=== PATIENT | male | born 1935 | race Caucasian/White ===

== ENCOUNTER → 2018-08-22 11:59 | Outpatient (CLI) | payer MEDICARE, OTHER, SELFPAY ==
--- NOTE | 2018-08-22 | DI.MRI.S_ITS ---
PROCEDURE: MR LUMBAR SPINE WO CON INDICATIONS: SCIATICA TECHNIQUE: Noncontrast sagittal T1 spin echo and T2 fast echo, sagittal STIR, axial T1 and T2 fast spin echo through the lumbar spine. In cases with scoliosis, additional coronal T2 fast spin echo may be performed. COMPARISON: None. FINDINGS: Image quality: Diagnostic, with note made of motion artifact. Alignment and Curvature: There is normal bony alignment. Bone Marrow: Marrow is of normal overall signal. No acute vertebral body compression fractures. Spinal Cord: Conus medullaris terminates at the L1 level. Visualized cord demonstrates normal signal and size. Paraspinous Soft Tissues: No paravertebral masses. T12-L1: Normal appearance. L1-L2: The disc height is well-preserved. Loss of disc signal is seen at this level. Mild to moderate disc bulge is seen. Mild to moderate facet hypertrophy is seen. No definite neural foraminal narrowing is seen. Mild to moderate central canal narrowing is seen, as on series 5 image 10. L2-L3: Mild loss of disc height is seen. Loss of disc signal is seen. Moderate disc bulge is seen, which is eccentric to the left. Mild to moderate facet hypertrophy is seen. There is moderate right-sided and mild to moderate left-sided neural foraminal narrowing seen. Moderate central canal narrowing is seen. L3-L4: Mild loss of disc height is seen. Loss of disc signal is seen. Moderate generalized disc bulge is seen. Moderate facet hypertrophy is seen, with associated moderate hypertrophy of the ligamentum flavum. There is at least moderate bilateral neural foraminal narrowing seen, left worse than right. Moderate central canal narrowing is seen. L4-L5: Mild loss of disc height is seen. Loss of disc signal is seen. Moderate to prominent disc bulge is seen, which is eccentric to the left. Moderate facet hypertrophy is seen, with associated moderate hypertrophy of the ligamentum flavum. There is at least moderate right-sided neural foraminal narrowing and there is moderate to severe left-sided neural foraminal narrowing seen. There is a degree of impingement seen upon the exiting nerve roots. Severe central canal narrowing is seen at this level. L5-S1: The disc height is well-preserved. Loss of disc signal is seen at this level. Moderate disc bulge is seen, which is eccentric to the left. Moderate facet hypertrophy is seen, left worse than right. There is moderate left-sided and moderate to severe right-sided neural narrowing seen. A mild degree of impingement can be seen upon the exiting right L5 nerve root. Mild central canal narrowing is seen. 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 Dictated by: Compa Rae M.D. on 08/22/2018 at 12:16 Approved by: Compa Rae M.D. on 08/22/2018 at 12:20
== END ==
PROVIDERS: PCP Family Medicine; Visit Provider Family Medicine
DX: M54.30 Sciatica, unspecified side (principal); M53.86 Other specified dorsopathies, lumbar region
CPT/HCPCS: 72148

== ENCOUNTER → 2021-09-22 10:30 | Outpatient (CLI) | payer MEDICARE, OTHER, SELFPAY ==
--- NOTE | 2021-09-22 | DI.US.S_ITS ---
PROCEDURE: US CAROTID DOPPLER BI INDICATIONS: STENOSIS TECHNIQUE: Color and pulse Doppler interrogation was performed of both carotid systems, with image documentation and velocity measurements. COMPARISON: None. FINDINGS: Stenosis calculations are based on SRU (Society of Radiologists in Ultrasound) criteria. Right side: Brachial blood pressure: 124/52 mm Hg. Common carotid artery peak systolic velocity: 61 cm/sec. Internal carotid artery peak systolic velocity: 46 cm/sec. Internal carotid artery end diastolic velocity: 80 cm/sec. External carotid artery peak systolic velocity: 56 cm/sec. ICA/CCA peak systolic ratio: 0.8 . Fernandes scale imaging description: Mild diffuse plaque Percent internal carotid artery stenosis: Less than 50% . Vertebral artery: Flow direction is antegrade. Left side: Brachial blood pressure: 107/52 mm Hg. Common carotid artery peak systolic velocity: 98 cm/sec. Internal carotid artery peak systolic velocity: 59 cm/sec. Internal carotid artery end diastolic velocity: 7 cm/sec. External carotid artery peak systolic velocity: 100 cm/sec. ICA/CCA peak systolic ratio: 0.6 . Fernandes scale imaging description: Moderate diffuse plaque Percent internal carotid artery stenosis: Less than 50% . Vertebral artery: Flow direction is antegrade. IMPRESSION: 1. Less than 50% bilateral internal carotid artery stenosis. 2. Antegrade vertebral artery flow bilaterally. Dictated by: Lew Barnes M.D. on 09/22/2021 at 15:22 Approved by: Lew Barnes M.D. on 09/22/2021 at 15:23
== END ==
PROVIDERS: PCP Internal Medicine; Referring Provider Physician Assistant; Visit Provider Physician Assistant
DX: I65.23 Occlusion and stenosis of bilateral carotid arteries (principal); R47.89 Other speech disturbances
CPT/HCPCS: 93880

== ENCOUNTER → 2021-11-16 09:32 | Outpatient (CLI) | payer MEDICARE, OTHER, SELFPAY ==
--- NOTE | 2021-11-16 | DI.MRI.S_ITS ---
PROCEDURE: MR HEAD/BRAIN WO/W CON INDICATIONS: Other amnesia TECHNIQUE: Noncontrast axial T1 spin echo, axial T2 fast spin echo, sagittal and axial FLAIR, coronal T2 fast spin echo, axial gradient echo, axial diffusion and ADC through the brain. After the administration of contrast, axial and coronal 3D VIBE or T1 spin echo with fat saturation through the brain. COMPARISON: None. FINDINGS: Image quality: Excellent. CSF Spaces: Basal cisterns are patent. No extra-axial fluid collections. Ventricles are normal in size and shape. Brain: Moderate cerebral volume loss without definite regional or lobar predilection. Advanced moderate to severe chronic microvascular ischemic changes. No mass effect or midline shift. No unexpected intracranial susceptibility or enhancement. No restricted diffusion. The major intracranial vascular flow-related signal voids are maintained. Skull and face: Calvarial marrow is normal in signal. Orbits appear normal. Sinuses: Sinuses and mastoids appear clear. IMPRESSION: No acute intracranial abnormality. Moderate global cerebral volume loss without regional or lobar predilection to suggest a specific neuro-degenerative disorder. Moderate to severe chronic microvascular ischemic changes. Dictated by: Ryan Velasco M.D. on 11/16/2021 at 9:38 Approved by: Ryan Velasco M.D. on 11/16/2021 at 9:42
== END ==
PROVIDERS: PCP Internal Medicine; Referring Provider Internal Medicine; Visit Provider Internal Medicine
DX: R41.3 Other amnesia (principal)
CPT/HCPCS: 70553; A9579

== ENCOUNTER 2022-09-19 03:14 | Emergency (ER) | payer MEDICARE, OTHER, SELFPAY ==
[2022-09-19 03:27] VITALS: BP 179/74; PULSE 65; RESP 18; TEMP 36.6; O2SAT 99; BMI 30.5
--- NOTE | 2022-09-19 03:32 | DI.RAD.S_ITS ---
PROCEDURE: XR CHEST 1V INDICATIONS: SOB TECHNIQUE: One view of the chest was acquired. COMPARISON: [facility], , XR CHEST 1 VIEW, 12/09/2021, 8:42. FINDINGS: Surgical changes and devices: Sternotomy. Lungs and pleura: Lungs are clear. No pleural effusions or pneumothorax. Mediastinum: Mediastinal contours appear normal. Heart size is normal. Bones and chest wall: No suspicious bony lesions. Overlying soft tissues appear unremarkable. IMPRESSION: No acute cardiopulmonary disease. No significant discrepancy with the grommet worker radiology preliminary report. Dictated by: Reese Gonsalez M.D. on 09/19/2022 at 8:28 Approved by: Reese Gonsalez M.D. on 09/19/2022 at 8:28
[2022-09-19 03:47] LABS: Add Manual Diff / Slide Review NO; Basophils Absolute Auto 100 /uL (0-100); Basophils Percent Auto 0.9 % (0-2); Eosinophils Absolute Auto 200 /uL (0-450); Hematocrit 38.8 % (41-53); Hemoglobin 12.7 g/dL (13.5-17.5); Lymphocytes Absolute Auto 1900 /uL (1100-4500); Lymphocytes Percent Auto 30.5 % (25-40); Mean Corpuscular HGB Conc 32.8 % (30-36); Mean Corpuscular Hemoglobin 30.1 PG (26-34); Mean Corpuscular Volume 91.9 fL (80-100); Monocytes Absolute Auto 700 /uL (0-900); Neutrophils Absolute Auto 3500 /uL (1500-7000); Neutrophils Percent Auto 54.6 % (50-75); Platelet Count 178 X10^3/uL (150-400); Red Blood Cell Count 4.22 X10^6/uL (4.5-5.9); Red Cell Distribution Width 16.8 % (11.6-14.8); White Blood Cell Count 6.4 X10^3/uL (4.5-11.0)
[2022-09-19 03:50] LABS: Creatine Kinase 465 U/L (55-170); Lipase 217 U/L (23-300); Magnesium 2.1 mg/dL (1.6-2.3)
[2022-09-19 03:51] LABS: Alanine Aminotransferase 37 IU/L (<50); Albumin 4.3 g/dL (3.5-5.0); Albumin Globulin Ratio 1.4 (1.0-2.8); Alkaline Phosphatase 72 U/L (38-126); Aspartate Aminotransferase 45 IU/L (17-59); BUN Creatinine Ratio 8.1 (6-22); Bilirubin Total 0.9 mg/dL (0.2-1.3); Blood Urea Nitrogen 12 mg/dL (9-20); Calcium 9.2 mg/dL (8.4-10.2); Carbon Dioxide 28 mmol/L (22-32); Chloride 106 mmol/L (98-107); Estimated Glomerular Filt Rate 46 mL/min (>60); Glucose 99 mg/dL (80-110); HEMOLYSIS < 15 (0-50); Potassium 3.6 mmol/L (3.4-5.1); Sodium 143 mmol/L (137-145); Total Protein 7.3 g/dL (6.3-8.2)
--- NOTE | 2022-09-19 03:58 | ED.GENADULT ---
HPI - General Adult General Chief complaint: Shortness of Breath/Dyspnea Stated complaint: sob Time Seen by Provider: 09/19/22 03:20 Source: patient Mode of arrival: Ambulatory Limitations: other (Dementia) History of Present Illness HPI narrative: Patient is an 86-year-old male. Here with his . Somewhat difficult to actually ascertain why he is here. Initial reports were that he was having some shortness of breath specifically with exertion and there were other times that he was stating that he was not having any shortness of breath but he was having chest pain. A 3rd time he stated that he was not having chest pain or shortness of breath but that he was having a lot of phlegm running down the back of his throat. He currently states he feels okay but apparently earlier this evening he was having problems breathing which is why he woke up his and asked her to bring him to the emergency department. He is no lower extremity swelling. He is unsure exactly what medications that he takes. He states that he takes ?8 medicines ?for his heart. Some of them he takes multiple times a day and some of them he takes once a day but he does not know the names. His is unsure of medicines that he takes as well. At the time of my initial evaluation he states that his biggest complaint was that he was having pain in his right hip where he recently received immunizations. Related Data Previous Rx's Medication Instructions Recorded furosemide 20 mg tablet (Lasix) 20 mg PO DAILY 3 days #3 tabs 09/19/22 Allergies Allergy/AdvReac Type Severity Reaction Status Date / Time No Known Drug Allergies Allergy Verified 09/19/22 03:27 Review of Systems Constitutional Constitutional: Reports system reviewed and no additional complaints, except as documented ENT Ears, Nose, Mouth, and Throat: Reports system reviewed and no additional complaints, except as documented Cardiovascular Cardiovascular: Reports system reviewed and no additional complaints, except as documented Respiratory Respiratory: Reports system reviewed and no additional complaints, except as documented Gastrointestinal Gastrointestinal: Reports system reviewed and no additional complaints, except as documented Integumentary/Breasts Skin/Breast: Reports system reviewed and no additional complaints, except as documented Patient History Medical History Dementia Social History Smoking Status: Never smoker Smoking Status: Never smoker Substance Use Type: does not use Exam Initial Vital Signs Initial Vital Signs: Vital Signs Temperature 97.9 F 09/19/22 03:27 Pulse Rate 65 09/19/22 03:27 Respiratory Rate 18 09/19/22 03:27 Blood Pressure 179/74 H 09/19/22 03:27 Pulse Oximetry 99 09/19/22 03:27 Oxygen Delivery Method 09/19/22 03:27 Const General: comfortable and No ill appearing [facility] Head: normal to inspection and normocephalic Resp Effort & Inspection: normal respiratory effort Auscultation: clear to auscultation bilaterally Cardio Rate: regular rate Rhythm: regular rhythm GI Inspection: normal to inspection Skin General: no rashes or lesions noted Neuro General: patient alert, patient awake, moves all extremities and patient confused Extrem General: edema (1+ pitting edema bilateral lower extremities) Course Orders Ordered: ED Orders 09/19/22 03:25 Complete Blood Count AUTO DIFF Stat Comprehensive Metabolic Panel Stat Lipase Stat Magnesium Stat NT-proBNP (BNP-Adult 18+) Stat Troponin & CK Cardiac Panel Stat 09/19/22 03:27 EKG-12 Lead Stat 09/19/22 03:32 XR chest 1V Stat Vital Signs Vital signs: Vital Signs - 8 hr 09/19/22 03:27 Temperature 97.9 F Pulse Rate 65 Respiratory Rate 18 Blood Pressure 179/74 H Pulse Oximetry 99 Oxygen Delivery Method Room Air Medical Decision Making Lab Data Lab results reviewed: Yes I reviewed the patient's lab results. Result diagrams: 09/19/22 03:25 09/19/22 03:25 Labs: Lab Results 09/19/22 09/19/22 09/19/22 Range/Units 03:25 03:25 03:25 WBC 6.4 (4.5-11.0) X10^3/uL RBC 4.22 L (4.5-5.9) X10^6/uL Hgb 12.7 L (13.5-17.5) g/dL Hct 38.8 L (41-53) % MCV 91.9 (80-100) fL MCH 30.1 (26-34) PG MCHC 32.8 (30-36) % RDW 16.8 H (11.6-14.8) % Plt Count 178 (150-400) X10^3/uL Neut % (Auto) 54.6 (50-75) % Lymph % (Auto) 30.5 (25-40) % [place] % (Auto) 11.0 (3-14) % Eos % (Auto) 3.0 (2-4) % Baso % (Auto) 0.9 (0-2) % Neut # (Auto) 3500 (7165-5836) /uL Lymph # (Auto) 1900 (3158-6863) /uL [place] # (Auto) 700 (0-900) /uL Eos # (Auto) 200 (0-450) /uL Baso # (Auto) 100 (0-100) /uL Sodium 143 (137-145) mmol/L Potassium 3.6 (3.4-5.1) mmol/L Chloride 106 (98-107) mmol/L Carbon Dioxide 28 (22-32) mmol/L BUN 12 (9-20) mg/dL Creatinine 1.49 H (0.66-1.25) mg/dL Estimated GFR 46 L (>60) mL/min BUN/Creatinine Ratio 8.1 (6-22) Glucose 99 (80-110) mg/dL Calcium 9.2 (8.4-10.2) mg/dL Magnesium 2.1 (1.6-2.3) mg/dL Total Bilirubin 0.9 (0.2-1.3) mg/dL AST 45 (17-59) IU/L ALT 37 (<50) IU/L Alkaline Phosphatase 72 (38-126) U/L Total Creatine Kinase 465 H (55-170) U/L CK-MB (CK-2) 3.46 H (<2.37) ng/mL CK-MB (CK-2) Rel Index 0.7 L (1.5-5.0) % Troponin I 0.018 (0.01-0.034) ng/mL NT-Pro-B Natriuret Pep 1730 H (<450) pg/mL Total Protein 7.3 (6.3-8.2) g/dL Albumin 4.3 (3.5-5.0) g/dL Globulin 3.0 (1.7-4.1) g/dL Albumin/Globulin Ratio 1.4 (1.0-2.8) Lipase 217 (23-300) U/L Imaging Data Chest x-ray: Radiologist's Impression: No acute cardiopulmonary abnormality is identified ECG Data Attestation: I personally reviewed and interpreted this ECG as follows: Interpretation: Sinus rhythm Ventricular rate is 62 Artifact noted in baseline Left axis deviation Left bundle branch block MDM Narrative Medical decision making narrative: Patient denies chest pain denies shortness of breath and time of my exam. His troponin is negative. Chest x-ray is relatively unremarkable. He does have pitting edema in both of his lower extremities. His BNP is somewhat elevated. No prior to compare to. From what I can get with talking with him and his he has had issues with shortness of breath specifically with exertion. Plan will be is to put him on Lasix for the next couple days. He states he is not on any medications that cause him to urinate. He states he is not taking Lasix/furosemide. His also confirmed that she does not think that he has to on this medication. I figure that even if he was on this medication increasing it for the next couple days could potentially help his shortness of breath. I have low suspicion for pneumonia. He is asymptomatic. Does not have findings consistent with an upper respiratory infection. This medicine was electronically transmitted to the pharmacy of his choice. He was given written return precautions. The patient and his expressed agreement plan. Discharge Plan Departure Patient Disposition: Home Clinical Impression: Shortness of Breath Instructions: DI for Shortness of Breath Activity Restrictions/Additional Instructions: Continue to take all of your medications as directed for the next couple days we are going to start you on a medicine called Lasix/furosemide. It was sent to the [employer] [facility] and you can pick it up later today and start taking it today. It will just be for the next 3 days. I recommend you contact your primary doctor for a follow-up. Return to the emergency department for any new or worsening symptoms. Prescriptions: New furosemide [Lasix] 20 mg tablet 20 mg PO DAILY 3 Days Qty: 3 0RF Referrals: Margot Bhakta MD [Primary Care Provider] -
[2022-09-19 04:03] LABS: NT-proBNP (BNP-Adult 18+) 1730 pg/mL (<450); Troponin I 0.018 ng/mL (0.01-0.034)
[2022-09-19 04:05] LABS: CKMB % Relative Index 0.7 % (1.5-5.0); Creatine Kinase MB 3.46 ng/mL (<2.37)
[2022-09-19 05:10] VITALS: BP 185/77; PULSE 56; RESP 18; O2SAT 96
== END 2022-09-19 05:25 | disposition home or self-care (01) ==
PROVIDERS: Emergency Provider Emergency Medicine; PCP Internal Medicine
DX: R06.02 Shortness of breath (principal); R07.9 Chest pain, unspecified
CPT/HCPCS: 36415; 71045; 80053; 82550; 82553; 83690; 83735; 83880; 84484; 85025; 93005; 99284

== ENCOUNTER 2022-09-22 16:38 | Emergency (ER) | payer MEDICARE, OTHER, SELFPAY ==
[2022-09-22 17:24] VITALS: BP 151/65; PULSE 64; RESP 18; TEMP 36.6; O2SAT 99
--- NOTE | 2022-09-22 19:12 | ED_ITS ---
HPI - Psych General Chief Complaint: Psychiatric Symptoms Stated Complaint: SI Time Seen by Provider: 09/22/22 19:12 Source: patient and family Mode of arrival: Ambulatory History of Present Illness HPI Narrative: 86-year-old gentleman with severe and progressive dementia who presents to the emergency department for uncertain reasons. Ostensibly wants to allow himself to be shot or use denies. 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 He is having difficulty sleeping but then sleeps during the day. He continues to ask perseverating questions about what he should be doing. He is not cognitively alert enough to complete a full sentence or follow-through on a complete thought. Has no active suicidal thoughts or plans. Clearly he is frustrated with his memory loss and difficulty in not being able to do all the things that he was once able to do. His of 60+ years accompanies him. While she is a bit more alert, she does note that he simply wants to be use denies and she to does not seem to have much insight into progressive dementia issues. There are no physical complaints today. He does have an appointment with his primary care doctor on Sunday. Related Data Allergies Allergy/AdvReac Type Severity Reaction Status Date / Time No Known Drug Allergies Allergy Verified 09/19/22 03:27 Review of Systems Review of Systems ROS Unobtainable: Unobtainable due to mental condition Patient History Medical History Dementia Social History Smoking Status: Never smoker Smoking Status: Never smoker Substance Use Type: does not use Exam Initial Vital Signs Initial Vital Signs: Vital Signs Temperature 97.8 F 09/22/22 17:24 Pulse Rate 64 09/22/22 17:24 Respiratory Rate 18 09/22/22 17:24 Blood Pressure 151/65 H 09/22/22 17:24 Pulse Oximetry 99 09/22/22 17:24 Oxygen Delivery Method 09/22/22 17:24 General: Alert appropriate in no acute distress Respiratory: Able to speak in full sentences, no obvious respiratory distress Skin: No obvious rashes, warm and dry Neurologic: Grossly intact no obvious asymmetries or abnormalities Psych: Dementia, unable to finish a complete sentence or thought, tangential thinking, word-finding difficulties, confabulation Course Orders Ordered: ED Orders 09/22/22 17:23 Consult to PROGRAMMING MANAGER - Student Services Director Stat 09/22/22 17:27 Acetaminophen Stat Complete Blood Count AUTO DIFF Stat Comprehensive Metabolic Panel Stat Ethanol (ETOH) Stat Free T4, Direct Thyroxine Stat Salicylate Stat Thyroid Stimulating Hormone Stat Urine Drug Screen, Rapid Stat Vital Signs Vital signs: Vital Signs - 8 hr 09/22/22 17:24 Temperature 97.8 F Pulse Rate 64 Respiratory Rate 18 Blood Pressure 151/65 H Pulse Oximetry 99 Oxygen Delivery Method Room Air MDM - Psych MDM Narrative Medical decision making narrative: 86-year-old gentleman wanted his to bring him into the emergency department today with complaints that he can not drive, he can not sleep he isn't sure what he is supposed to be doing with himself, there is projects to be done at home that he is not able to follow through. He had no specific medical complaints. He was seen by our licensed master social worker and was given counseling resources. I think more appropriate approach is going to be a discussion with the rest of the family about dementia care. Have asked our licensed master social worker to contact his son for whom we do have a phone number distal let him know that some of these cognitively challenging issues for both his mother and father are going to be problematic and will likely progress fairly rapidly. At this point I do not have any medical options for him he is discharged home encouraged him to keep his appointment on Sunday with his primary care doctor. Discharge Plan Departure Patient Disposition: Home Clinical Impression: Acute situational disturbance, Dementia Instructions: Dementia Activity Restrictions/Additional Instructions: I am sorry that you are frustrated with loss of freedoms and ability to completely care for yourself and your home in the way that you want to. Unfortunately memory issues and challenges in continuing to live independently are something that every adult needs to deal with and this is not an acute medical problem that I am going to be able to fix from the emergency department. I do encourage you to talk to her primary physician with your appointment on Sunday. I would also encourage both urine your to look at additional living situations such as an assisted living facility that may have an option to progress to a dementia care unit should that become necessary. The setting such as this is going to allow you help with getting some of the household tasks and chores done that you seem to be frustrated that you are unable to complete yourself. I wish you the best Referrals: Margot Bhakta MD [Primary Care Provider] -
--- NOTE | 2022-09-22 19:36 | CM.SWNOTE ---
MEDICAL CLERICAL ASSISTANT/DCP Assessment Note Patient is 86 y/o male who presents to ED with due to patient's concerns for SI. When asked about SI patient endorses that he is not able to drive anymore and does not have things to do around the house. Patient presents with disorganized speech, endorses patient's Dementia has been worsening in the last year as well. Patient's PCP is at the [facility], patient has upcoming PCP appt on Sunday. Patient has Medicare and for Life insurance. Patient presented to the ED with on 09/19/22 due to concern for SOB, patient was d/c'd to home with Lasix rx. MEDICAL CLERICAL ASSISTANT enters room to meet with patient and in triage with carbon paper machine operator present. MEDICAL CLERICAL ASSISTANT enters room to meet with patient and when patient is provided room in ED. Patient presents as A/O to self and person. Patient presents with disorganized speech and perseveration on driving hx and not driving or what he can and cannot do at home. Patient is unable to complete sentences. Patient presents as euthymic, full range. 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 endorses that she drives patient anywhere he needs to go. It is reported that patient is independent with ADLs, patient does not use any DME. It is reported that patient takes his medication independently. Patient and endorse safety at home. When asked about SI, patient does not endorse any plans of SI and does not endorse specific details about SI. endorses in triage that patient endorses that he wanted to and she brought him to ED. It is reported that they have a daughter that resides on [facility] that sees patient and somewhat regularly and their son lives in [place] and he just visited patient and . MEDICAL CLERICAL ASSISTANT provides with crisis contacts and list of MH providers that accept patient's insurance and serve elderly patients. MEDICAL CLERICAL ASSISTANT encourages and patient to f/u with PCP regarding patient's symptoms and presentation at appt on Sunday. Per recommendation from ED provider due to concern for patient's worsening dementia and memory loss, MEDICAL CLERICAL ASSISTANT calls patient's son. Son Holland Rea reports that he just visited patient and and is aware of patient's frustration of not being able to drive and his worsening dementia. MEDICAL CLERICAL ASSISTANT discusses options of in home care, ALFs and memory care, son reports concern for the cost of such skilled nursing care and lack of coverage from insurance. MEDICAL CLERICAL ASSISTANT encourages son to have conversation with his sister and continue to check on patient and . Son indicates agreement and understanding. It is the opinion of this MEDICAL CLERICAL ASSISTANT that patient is safe to d/c to home with , patient to f/u with PCP on Sunday with . MEDICAL CLERICAL ASSISTANT reviews the above with ED provider Dr. Holbrook who indicates agreement and expresses concern for continuation of patient's decline as well as 's ability to care for patient in the future. Plan: Patient to d/c to home with upon medical clearance, patient and to f/u with patient's PCP on Sunday. KEVIN Jimenez
[2022-09-22 19:54] VITALS: BP 173/73; PULSE 65; RESP 16; O2SAT 99
== END 2022-09-22 19:58 | disposition home or self-care (01) ==
PROVIDERS: Emergency Provider Emergency Medicine; PCP Internal Medicine
DX: A52.17 General paresis (principal); F43.0 Acute stress reaction
CPT/HCPCS: 99281